=== PATIENT | female | born 1990 | race Caucasian/White ===

== ENCOUNTER 2018-09-01 17:17 | Emergency (ER) | payer MEDICAID ==
--- NOTE | 2018-09-01 17:56 | NUR ---
Soo for pt, unable to locate.
--- NOTE | 2018-09-01 18:05 | NUR ---
Called for pt unable to locate.
--- NOTE | 2018-09-01 19:05 | NUR ---
Called for pt, unable to locate. Presumed to have LWBS.
== END 2018-09-01 20:00 | disposition left against medical advice (07) ==
LOC: SED 17:17
DX: R68.84 Jaw pain (principal); Z53.21 Procedure and treatment not carried out due to patient leaving prior to being seen by health care provider